=== PATIENT | male | born 1960 | race Hispanic/Latino ===

== ENCOUNTER 2024-03-14 17:31 | Emergency (ER) | payer SELFPAY ==
[~2024-03-14] VITALS: Ht 177.8 cm; Wt 65.8 kg
--- NOTE | 2024-03-14 18:01 | ERN ---
ED Note History of Present Illness Stated Complaint: PRIVATE AREA PAIN Chief Complaint: Testicular Injury/Pain Time Seen by MD: 17:37 Dictation: PATIENT IS A 63-YEAR-OLD MALE HERE WITH COMPLAINTS OF BILATERAL TESTICULAR PAIN FOR THE LAST THREE WEEKS. NO FEVER NO CHILLS NO NAUSEA. HE STATES HE HAS HAD NO TROUBLE WITH THE URINATION NO FLANK PAIN. STATES HE WAS SEEN AT THE [facility] AND WAS TOLD HE WOULD SEE A UROLOGIST HOWEVER NO REFERRAL WAS MADE. Allergies: Coded Allergies: caffeine (Unverified Allergy, Unknown, 03/14/24) Past Medical History Past Medical History: No Pertinent History Surgical History: None PSYCH History: no pertinent psych hx RN Note Reviewed/Agreed w/PFSH: Yes Review of System Dictation CONSTITUTIONAL: NEGATIVE EXCEPT FOR HPI HEAD/FACE: NEGATIVE EXCEPT FOR HPI EENT: NEGATIVE EXCEPT FOR HPI RESPIRATORY: NEGATIVE EXCEPT FOR HPI GASTROINTESTINAL/ABDOMINAL: NEGATIVE EXCEPT FOR HPI GENITOURINARY: NEGATIVE EXCEPT FOR HPI BILATERAL TESTICULAR PAIN THREE WEEKS MUSCULOSKELETAL: NEGATIVE EXCEPT FOR HPI INTEGUMENTARY: NEGATIVE EXCEPT FOR HPI NEUROLOGICAL/PSYCH: NEGATIVE EXCEPT FOR HPI HEMATOLOGIC/LYMPHATIC: NEGATIVE EXCEPT FOR HPI ALL SYSTEMS NEGATIVE, EXCEPT NOTED ABOVE. 13 POINT REVIEW OF SYSTEMS ASSESSED AND ALL NEGATIVE EXCEPT FOR ABOVE. Initial Vital Sign VS Vital Signs Date Time Temp Pulse Resp B/P (MAP) Pulse Ox O2 Delivery O2 Flow Rate FiO2 03/14/24 17:49 98.2 68 16 143/106 98 Room Air 0 Physical Exam Dictation VITAL SIGNS REVIEWED GENERAL APPEARANCE: ALERT, ORIENTED X 3, NO ACUTE DISTRESS, WELL DEVELOPED, NOURISHED. HEAD AND FACE: NON-TRAUMATIC. EYES: PERRL, PINK CONJUNCTIVAS, EYELID NO TRAUMA, ANTERIOR CHAMBER WITH ARCUS SENILIS. EARS: PINNAS INTACT AND NO SIGNS OF TRAUMA OR ERYTHEMA EAR CANALS CLEAR AND NO DISCHARGE TM NO ERYTHEMA NOSE: NO DISCHARGE, NO BLEEDING. OROPHARYNX: MOUTH NORMAL, TONGUE PINK, PHARYNX CLEAR,NO ERYTHEMA, TONSILS NO EXUDATES, NO ABSCESSES NOTED, MUCOUS MEMBRANE MOIST NECK: SUPPLE, NON-TENDER, NO THYROMEGALY, NO MASSES, NO JVD, NO BRUITS BREAST:DEFERRED CHEST:NO TENDERNESS, NO CREPITUS, NO PARADOXICAL MOVEMENT, NO RETRACTIONS LUNGS:CLEAR, WELL-VENTILATED, SYMMETRIC, NO RALES, NO WHEEZING, NO RHONCHI, NO STRIDOR, GOOD BREATH SOUNDS BILATERALLY HEART: REGULAR RATE, REGULAR RHYTHM, NO MURMUR, NO GALLOPS VASCULAR: NO PERIPHERAL EDEMA, ABDOMEN: SOFT, POSITIVE BOWEL SOUNDS, NONDISTENDED, NO GUARDING, NONTENDER, NO REBOUND, NO MASSES NO HEPATOMEGALY, NO SPLENOMEGALY, NO TREADWELL'S SIGN, NO HERNIAS. RECTAL: DEFERRED GENITAL: DEFERRED PATIENT WAS DISCHARGED FROM THE WAITING ROOM, UNABLE TO EXAMINED. HOWEVER NO TORSION FOUND ON ULTRASOUND. NEUROLOGICAL: NORMAL SPEECH, MOTOR FUNCTION INTACT, SENSORY FUNCTION INTACT MUSCULOSKELETAL: NECK NONTENDER, FULL RANGE OF MOTION, BACK NONTENDER, FULL RANGE OF MOTION, EXTREMITIES: NONTENDER, FULL RANGE OF MOTION SKIN: COLOR PINK, DRY, NO TURGOR, NO RASH, NO LACERATIONS, NO ABRASIONS, NO CON TUSIONS. LYMPHATIC: DEFERRED Results (Laboratory/Radiology) Laboratory/Radiology Laboratory Tests Test 03/14/24 19:20 White Blood Count 6.5 K/uL (4.8-10.8) Red Blood Count 5.25 MIL/uL (4.50-6.20) Hemoglobin 15.3 g/dL (14.0-18.0) Hematocrit 46.7 % (42-54) Mean Corpuscular Volume 89.0 fL (79-99) Mean Corpuscular Hemoglobin 29.1 pg (27.0-33.0) Mean Corpuscular Hemoglobin Concent 32.8 g/dL (32.0-36.0) Red Cell Distribution Width 13.2 % (11.0-15.5) Platelet Count 323 K/uL (130-400) Mean Platelet Volume 9.9 fL (7.5-10.5) Immature Granulocyte % (Auto) 1.1 % (0-1) H Neutrophils (%) (Auto) 55.2 % (40.0-77.0) Lymphocytes (%) (Auto) 30.7 % (21.0-51.0) Monocytes (%) (Auto) 7.7 % (3.0-13.0) Eosinophils (%) (Auto) 4.2 % (0.0-8.0) Basophils (%) (Auto) 1.1 % (0.0-5.0) Neutrophils # (Auto) 3.6 K/uL (1.8-7.7) Lymphocytes # (Auto) 2.0 K/uL (1.0-4.8) Monocytes # (Auto) 0.5 K/uL (0.1-1.0) Eosinophils # (Auto) 0.27 K/uL (0.00-0.70) Basophils # (Auto) 0.07 K/uL (0.00-0.20) Absolute Immature Granulocyte (auto 0.07 K/uL (0-1) Nucleated Red Blood Cells 0.0 % (0.0-0.19) Sodium Level 135 mmol/L (136-145) L Potassium Level 4.2 mmol/L (3.5-5.1) Chloride Level 100 mmol/L (101-111) L Carbon Dioxide Level 33 mmol/L (21-32) H Blood Urea Nitrogen 10 mg/dL (7-18) Creatinine 0.7 mg/dL (0.5-1.3) Glomerular Filtration Rate Calc 104 mL/min (>90) Random Glucose 89 mg/dL (70-105) Total Calcium 8.5 mg/dL (8.5-10.1) ULTRASOUND OF THE TESTICLES ULTRASOUND ABD VASCULAR LIMITED INDICATION: Bilateral testicular pain for 3 weeks. COMPARISON: None FINDINGS: The right testicle measures 4.1 x 2.7 x 2.6 cm. It is normal in echogenicity without mass. No hydrocele or varicocele demonstrated. Right epididymal head measures 0.9 cm. The left testicle measures 2.9 x 2.3 x 2.7 cm. It is normal in echogenicity without mass. Small to medium-sized varicocele without hydrocele demonstrated. Left epididymal head measures 0.7 cm. Color Doppler flow is normal throughout the both testicles.Spectral Doppler analysis demonstrates a normal waveform pattern in regards to both testicles. IMPRESSION: Small to medium-sized left varicocele without any testicular abnormality. Labs Reviewed?: Yes ED Course ED Course Orders Procedure Category Date Status Time Us Scrotum & Contents US 03/14/24 Resulted 17:50 Cbc With Differential LAB 03/14/24 Complete 17:50 Urinalysis Profile LAB 03/14/24 Logged 17:50 Basic Metabolic Panel LAB 03/14/24 Complete 17:50 Vital Signs Date Time Temp Pulse Resp B/P (MAP) Pulse Ox O2 Delivery O2 Flow Rate FiO2 03/14/24 17:49 98.2 68 16 143/106 98 Room Air 0 Medical Decision Making MDM MEDICAL DISCHARGE MAKING BASED ON ULTRASOUND OF SCROTUM AND CONTENTS WITH LABS. LABS NEGATIVE PATIENT HAS A LEFT VARICOCELE HE WILL BE REFERRED TO DR. KIM/UROLOGY FOR FOLLOW UP DX & DISP Disposition: Discharge Departure Impression: Primary Impression: Left varicocele Condition: Stable Assign Patient to: FOLLOW-UP WITH PRIMARY CARE PROVIDER IN 1 TO 2 DAYS. TAKE MEDICATIONS DIRECTED HERE IN THE EMERGENCY ROOM. OKAY TO CONTINUE HOME MEDICATIONS UNLESS OTHERWISE DISCUSSED DURING YOUR VISIT IN THE EMERGENCY ROOM TODAY. RETURN TO YOUR NEAREST EMERGENCY ROOM IF SYMPTOMS WORSEN OR IF THERE IS NO IMPROVEMENT. CALL 911 IF YOU NEED IMMEDIATE ASSISTANCE. TAKE TYLENOL OR MOTRIN [id number] NEEDED AND IF NO CONTRAINDICATIONS ARE PRESENT. INCREASE ORAL HYDRATION. A WOUND CULTURE OR URINE CULTURE WAS ORDERED HERE IN THE EMERGENCY ROOM DEPARTMENT PLEASE FOLLOW-UP WITH PRIMARY CARE PROVIDER AND ADVISE THEM TO GET REPEAT PORTS FROM OUR FACILITY. IF YOU HAD ANY SHERRY WRAP/SPLINTS THAT WERE APPLIED HERE, PLEASE DO NOT REMOVE THEM UNTIL YOU SEE YOUR PRIMARY CARE OR SPECIALTY. CALL UROLOGIST FOR AN APPOINTMENT IN THE NEXT 1-2 DAYS Referrals: KEO KIM MD Time of Disposition: 20:52 I have reviewed the case, and I agree with, Diagnosis and Plan SIDNEY NICHOLS NP Mar 14, 2024 18:01
--- NOTE | 2024-03-14 18:31 | HMCIMG ---
ULTRASOUND OF THE TESTICLES ULTRASOUND ABD VASCULAR LIMITED INDICATION: Bilateral testicular pain for 3 weeks. COMPARISON: None FINDINGS: The right testicle measures 4.1 x 2.7 x 2.6 cm. It is normal in echogenicity without mass. No hydrocele or varicocele demonstrated. Right epididymal head measures 0.9 cm. The left testicle measures 2.9 x 2.3 x 2.7 cm. It is normal in echogenicity without mass. Small to medium-sized varicocele without hydrocele demonstrated. Left epididymal head measures 0.7 cm. Color Doppler flow is normal throughout the both testicles.Spectral Doppler analysis demonstrates a normal waveform pattern in regards to both testicles. IMPRESSION: Small to medium-sized left varicocele without any testicular abnormality.
[2024-03-14 19:41] LABS: BASOPHILS # (AUTO) 0.07 K/uL (0.00-0.20); BASOPHILS % (AUTO) 1.1 % (0.0-5.0); EOSINOPHILS # (AUTO) 0.27 K/uL (0.00-0.70); EOSINOPHILS % (AUTO) 4.2 % (0.0-8.0); HEMATOCRIT 46.7 % (42-54); IMMATURE GRANULOCYTE ABSOLUTE 0.07 K/uL (0-1); LYMPHOCYTES % (AUTO) 30.7 % (21.0-51.0); MEAN CORPUSCULAR HEMOGLOBIN 29.1 pg (27.0-33.0); MEAN CORPUSCULAR HGB CONC 32.8 g/dL (32.0-36.0); MONOCYTES # (AUTO) 0.5 K/uL (0.1-1.0); MONOCYTES % (AUTO) 7.7 % (3.0-13.0); NEUTROPHILS # (AUTO) 3.6 K/uL (1.8-7.7); NEUTROPHILS % (AUTO) 55.2 % (40.0-77.0); PLATELET COUNT (AUTO) 323 K/uL (130-400); RED BLOOD CELL COUNT(AUTO) 5.25 MIL/uL (4.50-6.20); RED CELL DISTRIBUTION WIDTH 13.2 % (11.0-15.5); WHITE BLOOD COUNT (AUTO) 6.5 K/uL (4.8-10.8)
[2024-03-14 19:49] LABS: CREATININE 0.7 mg/dL (0.5-1.3); POTASSIUM 4.2 mmol/L (3.5-5.1)
[2024-03-14 20:52] VITALS: BP 132/92; PULSE 62; RESP 18; TEMP 98.2; O2SAT 98
[2024-03-14 21:06] LABS: ADD UA MICROSCOPIC NO; APPEARANCE,URINE CLEAR (CLEAR); BILIRUBIN,URINE NEGATIVE (NEGATIVE); COLOR,URINE LIGHT-YELLOW (YELLOW); GLUCOSE, URINE (UA) NEGATIVE (NEGATIVE); KETONES,URINE NEGATIVE (NEGATIVE); LEUKOCYTE ESTERASE ,URINE NEGATIVE Leu/uL (NEGATIVE); NITRATE,URINE NEGATIVE (NEGATIVE); OCCULT BLOOD,URINE NEGATIVE (NEGATIVE); PROTEIN,URINE NEGATIVE (NEGATIVE); UROBILINOGEN,URINE 0.2 mg/dL (0.2-1.0)
== END 2024-03-14 21:12 | disposition home or self-care (01) ==
LOC: EDH 17:31
DX: I86.1 Scrotal varices (principal); N50.811 Right testicular pain; Z88.5 Allergy status to narcotic agent
CPT/HCPCS: 36415; 76870; 80048; 81003; 85025; 99284